=== PATIENT | female | born 1965 | race Caucasian/White ===

== ENCOUNTER → 2020-11-25 | Outpatient (CLI) | payer OTHER ==
[~2020-11-25] MED LIST: HORMONE TP
[2020-11-25 15:43] LABS: MICROSCOPIC NOT IND
[2020-11-25 15:55] LABS: ALANINE AMINOTRANSFERASE 27 U/L (12-78); ALBUMIN 3.8 g/dL (3.4-5.0); ANION GAP 4 mmol/L (5-15); CALCIUM 8.5 mg/dL (8.5-10.1); CHLORIDE 109 mmol/L (98-107); CREATININE 0.73 mg/dL (0.55-1.02)
[2020-11-25 15:58] LABS: ALKALINE PHOSPHATASE 87 U/L (45-117); BILIRUBIN,TOTAL 0.7 mg/dL (0.2-1.0); TOTAL PROTEIN 6.9 g/dL (6.4-8.2)
[2020-11-25 15:59] LABS: BASOPHILS % (AUTO) 1 % (0-1); EOSINOPHILS % (AUTO) 9 % (1-7); LYMPHOCYTES % (AUTO) 26 % (22-44); MEAN CORPUSCULAR HEMOGLOBIN 32.5 pg (27.0-34.8); MEAN PLATELET VOLUME 8.1 fL (7.4-10.4); MONOCYTES % (AUTO) 7 % (2-9); NEUTROPHILS % (AUTO) 58 % (42-75); PLATELET COUNT 334 x10^3/uL (130-400); RED BLOOD COUNT 4.28 x10^6/uL (3.82-5.3); RED CELL DISTRIBUTION WIDTH 12.6 % (9.6-15.2)
[2020-11-25 17:15] LABS: MD SCAN
== END | disposition home or self-care (01) ==
LOC: STAR 14:33
PROVIDERS: ATTEND Obstetrics & Gynecology Gynecology
DX: Z01.818 Encounter for other preprocedural examination (principal); N39.3 Stress incontinence (female) (male); Z20.822 Contact with and (suspected) exposure to COVID-19
CPT/HCPCS: 36415; 80053; 81003; 85025; 93005; U0003

== ENCOUNTER 2020-11-29 07:39 | Day surgery (SDC) | payer OTHER ==
[~2020-11-29] VITALS: Ht 160 cm; Wt 59.1 kg
[2020-11-29] MEDS ORDERED: LACTATED RINGERS 1,000 ML IV SCH (08:00)
[2020-11-29] MEDS ORDERED: CHLORHEXIDINE 15 ML UDC PO ONE (08:00)
[2020-11-29] MEDS ORDERED: FENTANYL PF 100 MCG/2ML ONE ×2 (08:57→10:07)
[2020-11-29] MEDS ORDERED: MIDAZOLAM 1 MG/ML, 2ML ONE (08:57)
[2020-11-29] MEDS ORDERED: CEFAZOLIN 1,000 MG ONE ×2 (08:59→09:00)
[2020-11-29] MEDS ORDERED: DEXAMETHASONE 4 MG/ML, 1ML ONE ×2 (08:59)
[2020-11-29] MEDS ORDERED: ONDANSETRON 2MG/ML, 2ML ONE (08:59)
[2020-11-29] MEDS ORDERED: MEPERIDINE/PF 25MG/0.5ML IVPush PRN (09:00)
[2020-11-29] MEDS ORDERED: HYDROmorphone 1 MG/ML, 1ML INJ IVPush PRN (09:00)
[2020-11-29] MEDS ORDERED: ACETAMINOPHEN 325 MG TABLET PO PRN (09:00)
[2020-11-29] MEDS ORDERED: OXYcodone 5 MG/5 ML ORAL.SOL UDC PO PRN (09:00)
[2020-11-29] MEDS ORDERED: ONDANSETRON 2MG/ML, 2ML IVPush PRN (09:00)
[2020-11-29] MEDS ORDERED: PROPOFOL 10 MG/ML, 20ML ONE (09:00)
[2020-11-29] MEDS ORDERED: DIAZEPAM 5 MG/ML, 2ML IVPush PRN (09:00)
[2020-11-29] MEDS ORDERED: DIPHENHYDRAMINE 50 MG/ML, 1ML IVPush PRN (09:00)
[2020-11-29] MEDS ORDERED: KETOROLAC 30 MG/1 ML ONE (09:00)
[2020-11-29] MEDS ORDERED: PROMETHAZINE 25 MG/ML, 1ML IVPush PRN (09:00)
[2020-11-29] MEDS ORDERED: ACETAMINOPHEN 650 MG/20.3 ML UDC ONE (10:06)
[2020-11-29] MEDS ORDERED: OXYcodone 5 MG/5 ML ORAL.SOL UDC ONE (10:07)
[2020-11-29] MEDS: FENTANYL PF 100 MCG/2ML IV PRN ×2 (10:10→10:30)
== END 2020-11-29 15:30 | disposition home or self-care (01) ==
LOC: OUT 07:39
PROVIDERS: ATTEND Obstetrics & Gynecology Gynecology
DX: N39.3 Stress incontinence (female) (male) (principal); Z98.890 Other specified postprocedural states; Z82.49 Family history of ischemic heart disease and other diseases of the circulatory system
CPT/HCPCS: 57288; 71046; C1771; J0690; J1100; J1885; J2250; J2405; J2704; J3010; J7120